=== PATIENT | male | born 1970 | race Caucasian/White ===

== ENCOUNTER → 2016-12-31 | Outpatient (CLI) | payer OTHER ==
--- NOTE | 2016-12-31 15:17 | XR ---
Left knee HISTORY: Trauma and pain 3 views of the left knee Bone mineralization, joint spaces and alignment are maintained. There is no joint effusion. Mild spur ring at the patellofemoral joint. IMPRESSION: No fracture or dislocation. Follow-up as indicated for persistent symptoms.
== END | disposition home or self-care (01) ==
LOC: RADXRMAIN 14:18
PROVIDERS: ATTEND Emergency Medicine
DX: S80.02XA Contusion of left knee, initial encounter (principal)